=== PATIENT | female | born 1975 | race African-American/Black ===

== ENCOUNTER 2017-11-28 10:33 | Emergency (ER) | payer MEDICAID ==
[~2017-11-28] VITALS: Ht 165.1 cm; Wt 55.0 kg
[2017-11-28 11:16] LABS: BASOPHILS % 2.1 % (0.0-2.0); HEMATOCRIT. 31.4 % (36.0-48.0); HEMOGLOBIN. 10.1 g/dL (12.0-16.0); LYMPHOCYTES % 33.1 % (20.0-50.0); MEAN CORPUSCULAR HEMOGLOBIN 25.1 pg (28.0-32.0); MEAN CORPUSCULAR VOLUME 77.9 fL (81.0-99.0); NEUTROPHILS % 50.8 % (40.0-76.0); PLATELET 395 x1000/uL (130-400); RED BLOOD CELL COUNT 4.03 mill/uL (4.2-5.4); RED CELL DISTRIBUTION WIDTH 16.4 % (11.6-14.6)
[2017-11-28 11:19] LABS: CHLORIDE 109 mEq/L (98-107)
[2017-11-28 11:24] LABS: ETHANOL BLOOD < 10 mg/dL
[2017-11-28 12:01] LABS: CLARITY URINE CLEAR (CLEAR); COLOR URINE DARK YELLOW (YELLOW); KETONES URINE TRACE (NEGATIVE); LEUKOCYTE ESTERASE URINE NEGATIVE (NEGATIVE); NITRITE URINE NEGATIVE (NEGATIVE); OCCULT BLOOD URINE NEGATIVE (NEGATIVE); PROTEIN URINE TRACE (NEGATIVE); SPECIFIC GRAVITY URINE 1.035 (1.005-1.030)
[2017-11-28 12:18] LABS: *AMPHETAMINES SCREEN URINE NEGATIVE (NEGATIVE); *BARBITURATES SCREEN URINE NEGATIVE (NEGATIVE); *BENZODIAZEPINES SCREEN URINE NEGATIVE (NEGATIVE); *COCAINE SCREEN URINE NEGATIVE (NEGATIVE); METHADONE URINE SCREEN NEGATIVE (NEGATIVE); OPIATES URINE SCREEN NEGATIVE (NEGATIVE)
[2017-11-28 12:20] LABS: CANNABINOID URINE SCREEN PRESUMTIVE POSITIVE (NEGATIVE); PHENCYCLIDINE URINE SCREEN NEGATIVE (NEGATIVE)
[2017-11-28] MEDS ORDERED: SODIUM CHLORIDE 0.9% 1,000 ML IV ONE (18:00)
[2017-11-28 20:15] VITALS: BP 110/75
== END 2017-11-28 23:37 | disposition home or self-care (01) ==
LOC: ER 10:43
DX: R44.0 Auditory hallucinations (principal); F20.9 Schizophrenia, unspecified; F41.9 Anxiety disorder, unspecified; F17.200 Nicotine dependence, unspecified, uncomplicated; F12.10 Cannabis abuse, uncomplicated
CPT/HCPCS: 36415; 80053; 80305; 81003; 81025; 85025; 93005; 99285; G0482; J7030

== ENCOUNTER 2018-01-04 20:57 | Emergency (ER) | payer OTHER | END 2018-01-04 22:04 | disposition left against medical advice (07) | LOC: ER 20:57 | DX: T14.8XXA Other injury of unspecified body region, initial encounter (principal); X58.XXXA Exposure to other specified factors, initial encounter; Y93.89 Activity, other specified; Y92.89 Other specified places as the place of occurrence of the external cause; Y99.8 Other external cause status; Z53.21 Procedure and treatment not carried out due to patient leaving prior to being seen by health care provider ==

== ENCOUNTER 2018-03-05 09:25 | Emergency (ER) | payer OTHER ==
[~2018-03-05] VITALS: Ht 162.6 cm; Wt 56.0 kg
[2018-03-05] MEDS ORDERED: KETOROLAC 30MG/ML VIAL IV ONE (11:00)
[2018-03-05 11:16] LABS: EOSINOPHILS % 2.3 % (0.0-5.0); HEMATOCRIT. 31.6 % (36.0-48.0); HEMOGLOBIN. 10.2 g/dL (12.0-16.0); LYMPHOCYTES % 18.5 % (20.0-50.0); MEAN CORPUSCULAR VOLUME 80.2 fL (81.0-99.0); MONOCYTES % 7.6 % (2.0-8.0); NEUTROPHILS % 69.6 % (40.0-76.0); PLATELET 411 x1000/uL (130-400); RED BLOOD CELL COUNT 3.94 mill/uL (4.2-5.4)
[2018-03-05 11:20] LABS: CHLORIDE 107 mEq/L (98-107)
[2018-03-05] MEDS ORDERED: KETOROLAC 30MG/ML VIAL IM ONE (11:30)
[2018-03-05 13:58] VITALS: BP 107/69
== END 2018-03-05 13:59 | disposition home or self-care (01) ==
LOC: ER 10:15
DX: M79.675 Pain in left toe(s) (principal); M79.632 Pain in left forearm; F41.9 Anxiety disorder, unspecified; F20.9 Schizophrenia, unspecified; Y08.89XA Assault by other specified means, initial encounter
CPT/HCPCS: 36415; 73090; 73620; 80048; 81025; 85025; 96374; 99285; J1885

== ENCOUNTER 2018-08-25 08:56 | Emergency (ER) | payer OTHER ==
[~2018-08-25] VITALS: Ht 162.6 cm; Wt 61.0 kg
[2018-08-25] MEDS ORDERED: IBUPROFEN 600MG TABLET PO ONE (10:15)
[2018-08-25 12:29] VITALS: BP 109/76
== END 2018-08-25 12:33 | disposition home or self-care (01) ==
LOC: ER 08:56
DX: S93.401A Sprain of unspecified ligament of right ankle, initial encounter (principal); H61.23 Impacted cerumen, bilateral; F12.10 Cannabis abuse, uncomplicated; X58.XXXA Exposure to other specified factors, initial encounter; Y93.89 Activity, other specified; Y92.89 Other specified places as the place of occurrence of the external cause; Y99.8 Other external cause status
CPT/HCPCS: 69209; 73610; 99284

== ENCOUNTER 2019-10-18 08:43 | Emergency (ER) | payer OTHER ==
[~2019-10-18] VITALS: Ht 162.6 cm; Wt 48.0 kg
[2019-10-18 08:45] VITALS: BP 115/68
[2019-10-18] MEDS ORDERED: LIDOCAINE HCL 1% 20ML VIAL (Pyxis) INJ INFIL ONE (09:00)
[2019-10-18] MEDS ORDERED: IBUPROFEN 600MG TABLET PO ONE (09:00)
[2019-10-18] MEDS ORDERED: BACITRACIN ZINC OINT UDPKT TOP ONE (09:45)
== END 2019-10-18 09:55 | disposition home or self-care (01) ==
LOC: ER 08:43
DX: S91.201A Unspecified open wound of right great toe with damage to nail, initial encounter (principal); W23.1XXA Caught, crushed, jammed, or pinched between stationary objects, initial encounter; Y93.9 Activity, unspecified; Y92.9 Unspecified place or not applicable
CPT/HCPCS: 11730; 99284; J3490

== ENCOUNTER 2019-10-20 16:44 | Emergency (ER) | payer OTHER ==
[~2019-10-20] VITALS: Ht 162.6 cm; Wt 47.0 kg
[2019-10-20] MEDS ORDERED: IBUPROFEN 600MG TABLET PO ONE (17:30)
[2019-10-20] MEDS ORDERED: BACITRACIN ZINC OINT UDPKT TOP ONE (17:30)
[2019-10-20] MEDS ORDERED: CEPHALEXIN 250MG CAPSULE PO ONE (17:30)
[2019-10-20 18:24] VITALS: BP 108/67
== END 2019-10-20 17:50 | disposition home or self-care (01) ==
LOC: ER 16:44
DX: S91.111D Laceration without foreign body of right great toe without damage to nail, subsequent encounter (principal); X58.XXXD Exposure to other specified factors, subsequent encounter; F12.10 Cannabis abuse, uncomplicated
CPT/HCPCS: 99284; Z7610

== ENCOUNTER 2021-09-30 12:40 | Emergency (ER) | payer OTHER ==
[~2021-09-30] VITALS: Ht 162.6 cm; Wt 62.0 kg
[2021-09-30 15:13] LABS: CLARITY URINE TURBID (CLEAR); COLOR URINE YELLOW (YELLOW); KETONES URINE TRACE (NEGATIVE); LEUKOCYTE ESTERASE URINE 3+ (NEGATIVE); NITRITE URINE NEGATIVE (NEGATIVE); OCCULT BLOOD URINE NEGATIVE (NEGATIVE); PH URINE 7.5 (4.5-8.0); PROTEIN URINE TRACE (NEGATIVE); SPECIFIC GRAVITY URINE 1.026 (1.005-1.030)
[2021-09-30] MEDS ORDERED: CEFTRIAXONE SODIUM 250 MG/VIAL IM ONE (15:45)
[2021-09-30] MEDS ORDERED: ACYC200C31 PO (15:46)
[2021-09-30] MEDS ORDERED: DOXY-326 MT (15:46)
[2021-09-30 16:09] VITALS: BP 122/67
[2021-10-04 04:09] LABS: NEISSERIA GONORRHOEAE NAA Negative (Negative)
== END 2021-09-30 16:11 | disposition home or self-care (01) ==
LOC: ER 12:40
DX: B00.9 Herpesviral infection, unspecified (principal); F17.200 Nicotine dependence, unspecified, uncomplicated; F12.10 Cannabis abuse, uncomplicated
CPT/HCPCS: 81003; 87491; 87591; 96372; 99283; J0696

== ENCOUNTER 2021-12-08 12:01 | Emergency (ER) | payer OTHER ==
[~2021-12-08] VITALS: Ht 162.6 cm; Wt 70.0 kg
[~2021-12-08 12:01] MED LIST: ACYC200C31 PO; DOXY-326 MT
[2021-12-08 12:12] VITALS: BP 118/74
[2021-12-08] MEDS ORDERED: METR-167 MT (17:54)
[2021-12-08] MEDS ORDERED: ACYC200C31 PO (17:54)
[2021-12-08] MEDS ORDERED: CARB192C OT (18:00)
[2021-12-11 08:09] LABS: NEISSERIA GONORRHOEAE NAA Negative (Negative)
[2021-12-15] MEDS ORDERED: CARB192C OT (09:56)
[2021-12-15] MEDS ORDERED: ACYC200C31 PO (09:56)
[2021-12-15] MEDS ORDERED: METR-167 PO (09:56)
== END 2021-12-08 18:02 | disposition home or self-care (01) ==
LOC: ER 12:01
DX: N76.0 Acute vaginitis (principal); F12.10 Cannabis abuse, uncomplicated; Z98.890 Other specified postprocedural states
CPT/HCPCS: 81025; 87210; 87491; 87591; 99283

== ENCOUNTER 2021-12-28 08:57 | Emergency (ER) | payer OTHER ==
[~2021-12-28] VITALS: Ht 162.6 cm; Wt 70.0 kg
[~2021-12-28 08:57] MED LIST changes: +CARB192C OT; +METR-167 MT; +METR-167 PO
[2021-12-28 09:08] VITALS: BP 115/73
[2021-12-28] MEDS ORDERED: FLUORESCEIN SODIUM 1MG/STRIP BOTHEYE ONE (09:30)
[2021-12-28] MEDS ORDERED: TETRACAINE 0.5% OPHTH DROPS 4ML BOTHEYE ONE (09:30)
[2021-12-28] MEDS ORDERED: POLY10DR RIGHTEYE (10:08)
== END 2021-12-28 10:16 | disposition home or self-care (01) ==
LOC: ER 08:57
DX: H57.11 Ocular pain, right eye (principal); F20.9 Schizophrenia, unspecified; Z98.890 Other specified postprocedural states; F12.10 Cannabis abuse, uncomplicated; Z79.899 Other long term (current) drug therapy
CPT/HCPCS: 99283

== ENCOUNTER 2022-04-11 10:14 | Emergency (ER) | payer OTHER ==
[~2022-04-11] VITALS: Ht 172.7 cm; Wt 77.0 kg
[~2022-04-11 10:14] MED LIST changes: +POLY10DR RIGHTEYE
[2022-04-11 10:17] VITALS: BP 102/65
[2022-04-11] MEDS ORDERED: SODIUM CHLORIDE 0.9% 1,000 ML IV ONE (12:45)
[2022-04-11] MEDS ORDERED: ONDANSETRON HCL 4MG/2ML INJ IV ONE (12:45)
[2022-04-11 13:10] LABS: BASOPHILS % 0.8 % (0.0-2.0); EOSINOPHILS % 2.9 % (0.0-5.0); HEMATOCRIT. 39.9 % (36.0-48.0); HEMOGLOBIN. 13.4 g/dL (12.0-16.0); LYMPHOCYTES % 21.5 % (20.0-50.0); MEAN CORPUSCULAR HEMOGLOBIN 29.9 pg (28.0-32.0); MEAN CORPUSCULAR VOLUME 89.1 fL (81.0-99.0); MEAN PLATELET VOLUME 7.6 fl (7.4-10.4); MONOCYTES % 8.1 % (2.0-8.0); NEUTROPHILS % 66.7 % (40.0-76.0); PLATELET 424 x1000/uL (130-400); RED BLOOD CELL COUNT 4.47 mill/uL (4.2-5.4); RED CELL DISTRIBUTION WIDTH 15.6 % (11.6-14.6)
[2022-04-11 13:22] LABS: PROTHROMBIN TIME 10.3 sec (9.6-11.0)
[2022-04-11 14:03] LABS: CHLORIDE 104 mEq/L (98-107)
== END 2022-04-11 15:34 | disposition home or self-care (01) ==
LOC: ER 10:23
DX: R11.2 Nausea with vomiting, unspecified (principal); R10.9 Unspecified abdominal pain
CPT/HCPCS: 36415; 80053; 83690; 85025; 85610; 99283; J7030

== ENCOUNTER 2023-06-18 12:43 | Emergency (ER) | payer OTHER ==
[~2023-06-18] VITALS: Ht 162.6 cm; Wt 68.0 kg
[~2023-06-18 12:43] MED LIST changes: -DOXY-326 MT; +DOXY-456 MT
[2023-06-18 13:02] VITALS: BP 94/64; PULSE 94; RESP 18; TEMP 98.2; O2SAT 100
[2023-06-18] MEDS ORDERED: SULF1TAB48 MT (13:45)
[2023-06-18] MEDS ORDERED: BO1 TP (13:45)
[2023-06-18] MEDS ORDERED: IBUP-2028 MT (13:45)
[2023-06-18] MEDS ORDERED: TOPUD MT (13:45)
[2023-06-18] MEDS ORDERED: CEPH500C2 MT (13:45)
[2023-06-18] MEDS: TETANUS, DIPHTHERIA, PERTUSSIS VAC/PF 0.5ML (>10YR OLD) IM ONE (14:17)
== END 2023-06-18 16:06 | disposition home or self-care (01) ==
LOC: ER 13:17
DX: T23.021A Burn of unspecified degree of single right finger (nail) except thumb, initial encounter (principal); I10 Essential (primary) hypertension; F12.10 Cannabis abuse, uncomplicated; Z79.899 Other long term (current) drug therapy; X08.8XXA Exposure to other specified smoke, fire and flames, initial encounter; Y93.89 Activity, other specified; Y92.89 Other specified places as the place of occurrence of the external cause; Y99.8 Other external cause status
CPT/HCPCS: 90715; 90471; 99283; Z7610 ×2

== ENCOUNTER 2023-11-29 08:56 | Emergency (ER) | payer MEDICAID, OTHER ==
[~2023-11-29] VITALS: Ht 167.6 cm; Wt 70.0 kg
[~2023-11-29 08:56] MED LIST changes: +BO1 TP; +CEPH500C2 MT; +IBUP-2028 MT; +SULF1TAB48 MT; +TOPUD MT
[2023-11-29 09:15] VITALS: BP 93/62; PULSE 76; RESP 16; O2SAT 100
[2023-11-29] MEDS ORDERED: TOPUD PO (10:13)
[2023-11-29 10:15] VITALS: TEMP 98.1
[2023-11-29] MEDS: ACETAMINOPHEN 325MG TABLET PO ONE (10:15)
[2023-11-29] MEDS: FLUCONAZOLE 100MG TABLET PO ONE (10:16)
== END 2023-11-29 10:32 | disposition home or self-care (01) ==
LOC: ER 08:56
DX: M79.672 Pain in left foot (principal); N76.0 Acute vaginitis; I10 Essential (primary) hypertension; E11.9 Type 2 diabetes mellitus without complications; F12.90 Cannabis use, unspecified, uncomplicated; Z98.890 Other specified postprocedural states; Z79.899 Other long term (current) drug therapy
CPT/HCPCS: 99283

== ENCOUNTER 2024-05-22 18:18 | Emergency (ER) | payer MEDICAID ==
[~2024-05-22] VITALS: Ht 170.2 cm; Wt 73.0 kg
[~2024-05-22 18:18] MED LIST changes: -DOXY-456 MT; +DOXY100C74 MT; +TOPUD PO
[2024-05-22 18:28] VITALS: BP 103/62; PULSE 110; RESP 16; TEMP 98.7; O2SAT 98
== END 2024-05-23 00:38 | disposition left against medical advice (07) ==
LOC: ER 18:18
DX: R21 Rash and other nonspecific skin eruption (principal); Z53.21 Procedure and treatment not carried out due to patient leaving prior to being seen by health care provider

== ENCOUNTER 2025-04-20 12:48 | Emergency (ER) | payer MEDICAID ==
[~2025-04-20] VITALS: Ht 167.6 cm; Wt 68.0 kg
[~2025-04-20 12:48] MED LIST changes: +ACYC-58 PO; -ACYC200C31 PO; +DOXY-461 MT; -DOXY100C74 MT
[2025-04-20 12:57] VITALS: BP 113/73; PULSE 111; RESP 16; O2SAT 99
== END 2025-04-20 15:40 | disposition left against medical advice (07) ==
LOC: ER 12:48
DX: H92.02 Otalgia, left ear (principal); Z98.890 Other specified postprocedural states
CPT/HCPCS: 99281

== ENCOUNTER 2025-04-27 20:20 | Emergency (ER) | payer MEDICAID ==
[~2025-04-27] VITALS: Ht 167.6 cm; Wt 68.0 kg
[2025-04-27 20:24] VITALS: O2SAT 99
[2025-04-27] MEDS: ACETAMINOPHEN 500MG TABLET PO ONE (22:13)
[2025-04-27] MEDS ORDERED: CIPHCO LEFT EAR (23:47)
[2025-04-28] MEDS: CEFTRIAXONE SODIUM 500MG VIAL IM ONE (00:31)
[2025-04-28] MEDS: KETOROLAC 30MG/ML VIAL IM ONE (00:32)
[2025-04-28] MEDS: LIDOCAINE HCL 1% 20ML VIAL INFIL ONE (00:34)
[2025-04-28 00:39] VITALS: BP 117/69; PULSE 91; RESP 18; TEMP 36.7; O2SAT 99
== END 2025-04-28 00:44 | disposition home or self-care (01) ==
LOC: ER 20:20
DX: H66.92 Otitis media, unspecified, left ear (principal); Z79.624 Long term (current) use of inhibitors of nucleotide synthesis; Z98.890 Other specified postprocedural states; W18.30XA Fall on same level, unspecified, initial encounter; Y93.89 Activity, other specified; Y92.89 Other specified places as the place of occurrence of the external cause; Y99.8 Other external cause status
CPT/HCPCS: 70486; 99285; 96372; Z7610; J0696; J1885